=== PATIENT | female | born 1990 | race Caucasian/White ===

== ENCOUNTER 2020-05-11 12:56 | Outpatient (CLI) | payer BC ==
--- NOTE | 2020-05-11 13:35 | MMO ---
Bilateral MAMMO Bilat Diag [facility]. CLINICAL HISTORY: Patient is 29 years old and is seen for diagnostic exam and in the right breast. The patient has no family history of breast cancer. The patient has no personal history of cancer. VIEWS: The views performed were: bilateral craniocaudal with tomosynthesis; bilateral mediolateral oblique with tomosynthesis; and bilateral mediolateral with tomosynthesis. FILMS COMPARED: The present examination has been compared to a prior imaging study performed at [facility] on 05/11/2020. This study has been interpreted with the assistance of computer-aided detection. MAMMOGRAM FINDINGS: There are scattered fibroglandular densities. No mammographic or sonograhic abnormality is seen at the site of palpable There are no suspicious masses, suspicious calcifications, or new areas of architectural distortion. IMPRESSION: THERE IS NO MAMMOGRAPHIC EVIDENCE OF MALIGNANCY. AGE APPROPRIATE SCREENING BASED ON RISK FACTORS IS RECOMMENDED. THE RESULTS OF THIS EXAM WERE SENT TO THE PATIENT. ACR BI-RADS Category 2 - Benign finding MAMMOGRAPHY NOTE: 1. A negative mammogram report should not delay a biopsy if a dominant of clinically suspicious mass is present. 2. Approximately 10% to 15% of breast cancers are not detected by mammography. 3. Adenosis and dense breasts may obscure an underlying neoplasm. Reported by: BRIANNA LEAL MD Electonically Signed: [id number]
--- NOTE | 2020-05-11 13:38 | ULT ---
RIGHT BREAST ULTRASOUND: 05/11/20 HISTORY: Palpable abnormality at the 11-12 o'clock position of the right breast. FINDINGS: Correlation is made with mammogram same day. Sonographic evaluation in the region of palpable concern at the 11 and 12 o'clock positions of the ri ght breast demonstrates no abnormality. IMPRESSION: BIRADS 2: Benign Finding(s) Routine to age appropriate screening mammography based on risk factors . POS: OFF
== END 2020-05-11 12:57 | disposition home or self-care (01) ==
LOC: BICMAMMO 12:56
PROVIDERS: ATTEND Internal Medicine
DX: N63.10 Unspecified lump in the right breast, unspecified quadrant (principal)
CPT/HCPCS: 77066; G0279